=== PATIENT | male | born 1990 | race Caucasian/White ===

== ENCOUNTER 2021-04-23 12:26 | Emergency (ER) | payer MEDICAID ==
[~2021-04-23] VITALS: Ht 180.3 cm; Wt 59.1 kg
[2021-04-23 18:28] VITALS: BP 125/74
== END 2021-04-23 18:46 | disposition left against medical advice (07) ==
LOC: EMS 12:44
DX: S02.85XA Fracture of orbit, unspecified, initial encounter for closed fracture (principal); S02.40EA Zygomatic fracture, right side, initial encounter for closed fracture; S02.40CA Maxillary fracture, right side, initial encounter for closed fracture; Y04.0XXA Assault by unarmed brawl or fight, initial encounter; Y93.89 Activity, other specified; Y92.89 Other specified places as the place of occurrence of the external cause; Y99.8 Other external cause status
CPT/HCPCS: 70450; 70486; 72125; 99285